=== PATIENT | female | born 1995 | race Two or more races ===

== ENCOUNTER 2017-01-02 16:44 | Emergency (ER) | payer SELFPAY ==
[2017-01-02 16:59] VITALS: O2SAT 95
[2017-01-02 18:08] LABS: % IMMATURE GRANULYOCYTES 0.1 % (0.0-1.1); ABSOLUTE IMMATURE GRANULOCYTES 0.01 10^3/uL (0.00-0.10); ADD DIFF? NO; ADD MORPH? NO; ADD SCAN? NO; ATYPICAL LYMPHOCYTE FLAG 0 (0-99); FRAGMENT RBC FLAG 0 (0-99); HEMATOCRIT 44.1 % (38.0-47.0); HEMOGLOBIN 15.1 g/dL (12.6-16.3); LEFT SHIFT FLG 0 (0-99); LIPEMIA HEMOLYSIS FLAG 90 (0-99); MEAN CELL HEMOGLOBIN 30.4 pg (27.9-34.1); MEAN CELL HEMOGLOBIN CONCENTR. 34.2 g/dL (32.4-36.7); MEAN CELL VOLUME 88.9 fL (81.5-99.8); MEAN PLATELET VOLUME 10.5 fL (8.7-11.7); PLATELET CLUMPS FLAG 20 (0-99); PLATELET COUNT 313 10^3/uL (150-400); RED BLOOD CELL COUNT 4.96 10^6/uL (4.18-5.33); RED CELL DISTRIBUTION WIDTH 12.1 % (11.5-15.2)
[2017-01-02 18:18] LABS: COLOR YELLOW; LEUKOCYTE ESTERASE,URINE TRACE (NEGATIVE); NITRITE,URINE NEGATIVE (NEGATIVE)
[2017-01-02 18:27] LABS: BACTERIA TRACE /hpf (NONE SEEN); MUCUS TRACE /lpf (NONE-1+); RBC,URINE 50-182 /hpf (0-3); WBC,URINE 15-25 /hpf (0-3)
[2017-01-02 18:54] LABS: ANION GAP 16 mEq/L (8-16); CALCIUM 9.8 mg/dL (8.5-10.4); CARBON DIOXIDE 19 mEq/l (22-31); CHLORIDE 104 mEq/L (97-110); CREATININE 0.6 mg/dL (0.6-1.0); GLOMERULAR FILTRATION RATE > 60; GLUCOSE 89 mg/dL (70-100); POTASSIUM 4.5 mEq/L (3.5-5.2); SODIUM 139 mEq/L (134-144)
--- NOTE | 2017-01-02 19:21 | EDPHY ---
H & P Stated Complaint: nausea + preg test last now bleeding Source: Patient Exam Limitations: No limitations - Personal History LMP (Females 10-55): Current Tetanus/Diphtheria Vaccine: Yes Tetanus Vaccine Date: <10yrs - Medical/Surgical History Hx Asthma: No Hx Chronic Respiratory Disease: No Hx Diabetes: No Hx Cardiac Disease: No Hx Renal Disease: No Hx Cirrhosis: No Hx Alcoholism: No Hx HIV/AIDS: No Hx Splenectomy or Spleen Trauma: No Other PMH: ovarian cyst, chronic back pain - Social History Smoking Status: Never smoked Time Seen by Provider: 01/02/17 17:36 HPI/ROS: CHIEF COMPLAINT: Vaginal bleeding HISTORY OF PRESENT ILLNESS: 21-year-old female presents emergency department complaining of vaginal spotting that started yesterday and vaginal bleeding that started today. She reports it is light, she states there have been a few clots. She had a positive test on , [facility] and they sent her to the emergency department. Patient denies fevers. She REVIEW OF SYSTEMS: A comprehensive 10 point review of systems is otherwise negative aside from elements mentioned in the history of present illness. (Qing Henson) - Physical Exam Exam: Physical Exam Gen: Alert and Oriented, NAD HEENT: PERRL, moist mucous membranes NECK: no meningismus CV: regular rate and regular rhythm PULM: CTAB, no wheezes ABDOMEN: soft, obese, non tender to palpation, BS present BACK: No CVA tenderness NEURO: Neurologically grossly intact EXTREMITIES: normal appearing SKIN: no rash or break in skin on exposed skin PSYCH: answers questions appropriately. (Qing Henson) Constitutional: Initial Vital Signs Temperature (C) 36.7 C 01/02/17 16:56 Heart Rate 74 01/02/17 16:56 Respiratory Rate 20 01/02/17 16:56 Blood Pressure 124/71 H 01/02/17 16:56 O2 Sat (%) 95 01/02/17 16:56 O2 Delivery Mode Room Air Allergies/Adverse Reactions: No Known Allergies Allergy (Verified 01/02/17 16:56) Home Medications: Medication Instructions Recorded Cephalexin [Keflex] 500 mg PO BID 5 Days 01/02/17 Medical Decision Making - Diagnostics Imaging: Discussed imaging studies w/ call box wirer Radiologist ED Course/Re-evaluation: 21-year-old female [facility] for and vaginal bleeding. On arrival IV established, CBC, chemistry panel, quantitative HCG, Rh and 1st trimester ultrasound ordered. CBC and chemistry panel are unremarkable, urinalysis shows 50-182 RBCs and 15- 25 WBCs. Quantitative HCG is 2.5, pelvic ultrasound shows no evidence the of IUP, bilateral ovarian cysts. I spoke with the patient told her that she is not . Patient has a urinary tract infection. She will be treated Keflex. She agrees to follow up with her primary care doctor for her vaginal bleeding which could be a menstrual cycle has her menstrual cycles are abnormal. Patient is comfortable with this plan. She is given return precautions for fevers, vomiting, increased vaginal bleeding, new symptoms or concerns. (Qing Henson) Differential Diagnosis: Diagnosis considered but not limited to urinary tract infection, dysmenorrhea, menstruation, ovarian cyst (Qing Henson) Other Provider: The patient wasevaluatedand managed by themmdlevel provider. Idiscussed the patient's presentation and course with thephysicianassistantor nurse practitionerand agree with theevaluation. My co-signature indicates that I have reviewed this chart and I agree with the findings and plan of care as documented. I am the secondary supervisingphysician. (Christina Delcid) - Data Points Laboratory Results: Laboratory Results 01/02/17 17:50 01/02/17 17:50 Microbiology Results: MICROBIOLOGY 01/02/17 18:26 Urine,Clean Catch Urine Culture - Preliminary Departure - Departure Disposition: Home, Routine, Self-Care Clinical Impression: Urinary tract infection, Vaginal bleeding Condition: Good Instructions: Dysfunctional Uterine Bleeding (ED), Urinary Tract Infection in Women (ED) Additional Instructions: Take antibiotics as prescribed. Return to the emergency department immediately for any vomiting, fevers, worsening symptoms. Follow up with [facility] this week for re-evaluation. Referrals: Lis Snow PA [Primary Care Provider] - As per Instructions Stand Alone Forms: Work Excuse Prescriptions: Cephalexin [Keflex] 500 mg PO BID 5 Days
[2017-01-02 20:29] VITALS: BP 104/63; PULSE 69; RESP 18; TEMP 98.2
== END 2017-01-02 20:14 | disposition home or self-care (01) ==
DX: O20.8 Other hemorrhage in early pregnancy (principal); O23.40 Unspecified infection of urinary tract in pregnancy, unspecified trimester; B96.89 Other specified bacterial agents as the cause of diseases classified elsewhere; Z3A.00 Weeks of gestation of pregnancy not specified

== ENCOUNTER 2017-12-31 19:19 | Emergency (ER) | payer SELFPAY ==
--- NOTE | 2017-12-31 19:46 | EDPHY ---
H & P Stated Complaint: c/o logan since approx 1300, since getting worse, visual dist also Time Seen by Provider: 12/31/17 19:45 HPI/ROS: CHIEF COMPLAINT: Headache HISTORY OF PRESENT ILLNESS: The patient presents to the ED with a 1 day history of a left retro-orbital headache with associated blurry vision. She denies any peripheral numbness or weakness. She denies any history of fever, recent upper respiratory infection or neck stiffness. The patient has been having some nonspecific myalgias over the past 3 weeks. The patient does have a remote history of migraine-type headaches however has not had 1 in several years. She does report this headache is similar to her previous headache patterns. REVIEW OF SYSTEMS: A comprehensive 10 point review of systems is otherwise negative aside from elements mentioned in the history of present illness. Source: Patient Exam Limitations: No limitations - Personal History Tetanus Vaccine Date: <10yrs - Medical/Surgical History Hx Asthma: No Hx Chronic Respiratory Disease: No Hx Diabetes: No Hx Cardiac Disease: No Hx Renal Disease: No Hx Cirrhosis: No Hx Alcoholism: No Hx HIV/AIDS: No Hx Splenectomy or Spleen Trauma: No Other PMH: ovarian cyst, chronic back pain - Social History Smoking Status: Never smoked - Physical Exam Exam: General Appearance: Alert, no distress Eyes: Pupils equal and round no pallor or injection ENT, Mouth: Mucous membranes moist Respiratory: There are no retractions, lungs are clear to auscultation Cardiovascular: Regular rate and rhythm Gastrointestinal: Abdomen is soft and nontender, no masses, bowel sounds normal Neurological: A&O, normal motor function, normal sensory exam, normal cranial nerves Skin: Warm and dry, no rashes Musculoskeletal: Neck is supple nontender, no meningeal symptoms Extremities: symmetrical, full range of motion Constitutional: Initial Vital Signs Temperature (C) 36.9 C 12/31/17 19:34 Heart Rate 81 12/31/17 19:34 Respiratory Rate 16 12/31/17 19:34 Blood Pressure 122/80 H 12/31/17 19:34 O2 Sat (%) 96 12/31/17 19:34 O2 Delivery Mode Room Air Allergies/Adverse Reactions: No Known Allergies Allergy (Verified 12/31/17 19:38) Home Medications: Medication Instructions Recorded Ibuprofen 12/31/17 Medical Decision Making ED Course/Re-evaluation: The patient presents to the ED with an apparent migrainous headache. It is sharp retro-orbital and associated with visual scotoma. The patient is noted to be afebrile and is neurologically intact. She had an IV established. She has no meningeal symptoms. The patient was treated with IV Reglan, Benadryl, Toradol and Decadron. I re-evaluated the patient at 8:35 p.m. In her headache has entirely resolved. She continues to have a normal neurologic examination without meningeal symptoms. The patient will be discharged home with a resolved migraine headache. She is given customary aftercare instructions and return precautions. Differential Diagnosis: Differential diagnosis considered includes tension headache, migraine headache, meningitis - Data Points Medications Given: Discontinued Medications Dexamethasone (Decadron Injection) 10 mg IVP EDNOW ONE Stop: 12/31/17 19:55 Last Admin: 12/31/17 20:06 Dose: 10 mg Diphenhydramine HCl (Benadryl Injection) 25 mg IVP EDNOW ONE Stop: 12/31/17 19:55 Last Admin: 12/31/17 20:05 Dose: 25 mg Ketorolac Tromethamine (Toradol) 30 mg IVP EDNOW ONE Stop: 12/31/17 19:55 Last Admin: 12/31/17 20:03 Dose: 30 mg Metoclopramide HCl (Reglan Injection) 10 mg IVP EDNOW ONE Stop: 12/31/17 19:55 Last Admin: 12/31/17 20:06 Dose: 10 mg Departure - Departure Disposition: Home, Routine, Self-Care Clinical Impression: Migraine headache Condition: Good Instructions: Migraine Headache (ED) Additional Instructions: 1. Take Ibuprofen or Motrin 600 mg by mouth three times a day. 2. Zofran as needed for nausea 3. Return to ED for recurrent severe headache, nausea, vomiting or other concerns. Referrals: Lis Snow PA [Primary Care Provider] - As per Instructions
[2017-12-31] MEDS ORDERED: DEXAMETHASONE 10 MG/ML VIAL IVP ONE (19:54)
[2017-12-31] MEDS ORDERED: KETOROLAC 30 MG/1 ML SDV IVP ONE (19:54)
[2017-12-31] MEDS ORDERED: METOCLOPRAMIDE 10 MG/2 ML VIAL IVP ONE (19:54)
[2017-12-31 20:46] VITALS: BP 110/62
== END 2017-12-31 20:46 | disposition home or self-care (01) ==
DX: G43.909 Migraine, unspecified, not intractable, without status migrainosus (principal)
CPT/HCPCS: 96374; J1100; J1200; J1885; J2765